=== PATIENT | male | born 1990 | race Caucasian/White ===

== ENCOUNTER 2019-08-16 10:39 | Outpatient (CLI) | payer OTHER | END 2019-08-16 10:46 | disposition home or self-care (01) | LOC: LAB 10:39 | PROVIDERS: ATTEND General Practice | DX: J11.1 Influenza due to unidentified influenza virus with other respiratory manifestations (principal); Z20.828 Contact with and (suspected) exposure to other viral communicable diseases; R05 Cough; R53.81 Other malaise; Z11.59 Encounter for screening for other viral diseases ==